=== PATIENT | female | born 2000 | race Two or more races ===

== ENCOUNTER 2023-02-07 02:58 | Emergency (ER) | payer SELFPAY ==
[~2023-02-07] VITALS: Ht 167.6 cm; Wt 67.1 kg
[2023-02-07] MEDS ORDERED: HYDROCODONE/APAP 5/325MG TABLET ONE (03:19)
[2023-02-07] MEDS ORDERED: LORAZEPAM 1 MG TABLET ONE (03:20)
[2023-02-07] MEDS ORDERED: LORAZEPAM 1 MG TABLET PO ONE (03:30)
[2023-02-07] MEDS ORDERED: HYDROCODONE/APAP 5/325MG TABLET PO ONE (03:30)
[2023-02-07 04:30] VITALS: BP 119/81; TEMP 98; O2SAT 99
== END 2023-02-07 04:50 | disposition home or self-care (01) ==
LOC: ER 02:59
DX: S00.03XA Contusion of scalp, initial encounter (principal); Y04.8XXA Assault by other bodily force, initial encounter; Y93.89 Activity, other specified; Y92.89 Other specified places as the place of occurrence of the external cause; Y99.8 Other external cause status
CPT/HCPCS: 70450-TC; 70486-TC; 72125-TC